=== PATIENT | male | born 1970 | race Caucasian/White ===

== ENCOUNTER 2017-06-05 18:00 | Outpatient (CLI) | payer OTHER | END 2017-06-05 18:01 | disposition home or self-care (01) | LOC: SLEEPLAB 18:00 | PROVIDERS: ATTEND Family Medicine | DX: G47.33 Obstructive sleep apnea (adult) (pediatric) (principal); R06.83 Snoring; K21.9 Gastro-esophageal reflux disease without esophagitis; E66.9 Obesity, unspecified; Z68.42 Body mass index [BMI] 45.0-49.9, adult | CPT/HCPCS: 95806 ==

== ENCOUNTER 2023-12-25 15:48 | Outpatient (CLI) | payer BC | END 2023-12-25 15:49 | disposition home or self-care (01) | LOC: SCSRAD 15:48 | PROVIDERS: ATTEND Family Medicine | DX: M79.671 Pain in right foot (principal); M19.071 Primary osteoarthritis, right ankle and foot ==

== ENCOUNTER 2024-01-27 14:41 | Outpatient (CLI) | payer BC | END 2024-01-27 14:42 | disposition home or self-care (01) | LOC: CT 14:41 | DX: F64.9 Gender identity disorder, unspecified (principal) | CPT/HCPCS: 70450; 70486; 70490; 76376 ==